=== PATIENT | female | born 1945 | race Hispanic/Latino ===

== ENCOUNTER 2017-04-27 09:00 | Emergency (ER) | payer MEDICARE ==
[~2017-04-27 09:00] MED LIST: AEC81 PO; ATOR40TA71 PO; BUSP5TAB3 PO; CHOL200026 PO; DESI10TA3 PO; LOSA100T29 PO; METF500T6 PO; METO50TA18 PO
[2017-04-27] MEDS ORDERED: ONDANSETRON HCL 4 MG/2 ML VIAL ONE (09:17)
[2017-04-27 09:43] LABS: BASOPHILS % (AUTO) 0.7 % (0.0-5.0); EOSINOPHILS % (AUTO) 1.6 % (0.0-8.0); LYMPHOCYTES % (AUTO) 40.8 % (21.0-51.0); MEAN CORPUSCULAR HEMOGLOBIN 30.8 pg (27.0-33.0); MEAN CORPUSCULAR HGB CONC 34.3 g/dL (32.0-36.0); MEAN CORPUSCULAR VOLUME 89.8 fL (79-99); MONOCYTES % (AUTO) 6.2 % (3.0-13.0); NEUTROPHILS % (AUTO) 50.7 % (40.0-77.0); PLATELET COUNT (AUTO) 265 K/uL (130-400); RED BLOOD CELL COUNT(AUTO) 4.23 MIL/uL (4.00-5.50); RED CELL DISTRIBUTION WIDTH 13.3 % (11.0-15.5); WHITE BLOOD COUNT (AUTO) 9.2 K/uL (4.8-10.8)
[2017-04-27 09:57] LABS: CARBON DIOXIDE 26 mmol/L (21-32); CHLORIDE 103 mmol/L (101-111); CREATININE 0.7 mg/dL (0.5-1.5); GLOMERULAR FILTR. RATE CALC 87 mL/min (>60); GLUCOSE,RANDOM 186 mg/dL (70-105); POTASSIUM 3.5 mmol/L (3.5-5.1); SODIUM SERUM 139 mmol/L (136-145); UREA NITROGEN, BLOOD 14 mg/dL (7-18)
[2017-04-27 10:11] LABS: ALANINE AMINOTRANSFERASE 24 U/L (12-78); ALBUMIN 4.1 g/dL (3.5-5.0); AMYLASE 56 U/L (25-115); ASPARTATE AMINOTRANSFERASE 19 U/L (10-37); BILIRUBIN,TOTAL 0.5 mg/dL (0.2-1.0); CREATINE KINASE MB < 0.5 ng/mL (0.5-3.6); CREATINE KINASE, TOTAL 74 U/L (21-232); LIPASE 311 U/L (114-286); TOTAL PROTEIN, SERUM 8.5 g/dL (6.0-8.3)
[2017-04-27] MEDS ORDERED: SODIUM CHLORIDE 0.9% 1000ML 1,000 ML IV ONE (10:32)
[2017-04-27 10:53] LABS: APPEARANCE,URINE Clear (CLEAR); BILIRUBIN,URINE Negative (NEGATIVE); COLOR,URINE Yellow (YELLOW); GLUCOSE, URINE (UA) Negative (NEGATIVE); KETONES,URINE Negative (NEGATIVE); LEUKOCYTE ESTERASE ,URINE Trace (NEGATIVE); NITRATE,URINE Positive (NEGATIVE); OCCULT BLOOD,URINE Negative (NEGATIVE); PROTEIN,URINE POS 1+ (NEGATIVE)
[2017-04-27 11:15] LABS: RBC,URINE 0-1 /HPF (0-1)
[2017-04-27 11:16] LABS: BACTERIA,URINE Many /HPF (None Seen); SQUAMOUS EPITHELIAL CELL,UR Rare /LPF (0-2)
== END 2017-04-27 12:35 | disposition home or self-care (01) ==
LOC: EDH 09:00
DX: K85.90 Acute pancreatitis without necrosis or infection, unspecified (principal); K31.84 Gastroparesis; E11.9 Type 2 diabetes mellitus without complications; I10 Essential (primary) hypertension; E07.9 Disorder of thyroid, unspecified; Z90.49 Acquired absence of other specified parts of digestive tract; Z90.710 Acquired absence of both cervix and uterus
CPT/HCPCS: 36415; 71045; 74176; 80053; 81001; 82150; 82550; 82553; 83690; 84484; 85025; 87804 ×2; 93005; 96361; 96374; 99285; J2405; J7030

== ENCOUNTER → 2017-08-29 | Outpatient (CLI) | payer MEDICARE | END | disposition home or self-care (01) | LOC: SHCH 09:56 | PROVIDERS: ATTEND Internal Medicine Cardiovascular Disease | DX: I10 Essential (primary) hypertension (principal) | CPT/HCPCS: 93306 ==

== ENCOUNTER → 2018-08-07 | Outpatient (CLI) | payer MEDICARE ==
[~2018-08-07] MED LIST changes: +ALBUTEROL SULFATE 0.083% 2.5 MG/3 ML INH IH ONE; -LOSA100T29 PO; +LOSA100T58 PO; +METF-444 PO; -METF500T6 PO
== END | disposition home or self-care (01) ==
LOC: RESP 08:58
PROVIDERS: ATTEND Internal Medicine Cardiovascular Disease
DX: J44.9 Chronic obstructive pulmonary disease, unspecified (principal)
CPT/HCPCS: 94060; 94727; 94729

== ENCOUNTER 2018-10-18 08:20 | Observation (INO) | payer MEDICARE ==
[~2018-10-18] VITALS: Ht 157.5 cm; Wt 72.5 kg
[~2018-10-18 08:20] MED LIST changes: -ALBUTEROL SULFATE 0.083% 2.5 MG/3 ML INH IH ONE
[2018-10-18] MEDS ORDERED: ASPIRIN 325 MG TABLET ONE (08:27)
[2018-10-18 08:34] LABS: BASOPHILS % (AUTO) 0.9 % (0.0-5.0); EOSINOPHILS % (AUTO) 1.9 % (0.0-8.0); HEMATOCRIT 37.7 % (36-48); LYMPHOCYTES % (AUTO) 42.9 % (21.0-51.0); MEAN CORPUSCULAR HEMOGLOBIN 30.9 pg (27.0-33.0); MEAN CORPUSCULAR HGB CONC 34.2 g/dL (32.0-36.0); MEAN CORPUSCULAR VOLUME 90.2 fL (79-99); MONOCYTES % (AUTO) 5.8 % (3.0-13.0); NEUTROPHILS % (AUTO) 48.5 % (40.0-77.0); PLATELET COUNT (AUTO) 247 K/uL (130-400); RED BLOOD CELL COUNT(AUTO) 4.18 MIL/uL (4.00-5.50); RED CELL DISTRIBUTION WIDTH 12.4 % (11.0-15.5)
[2018-10-18 08:39] LABS: CREATININE 0.9 mg/dL (0.5-1.5); POTASSIUM 3.7 mmol/L (3.5-5.1)
[2018-10-18 08:40] LABS: INR 0.95 (0.85-1.15); PARTIAL THROMBOPLASTIN TIME 25.6 SEC (26.3-35.5)
[2018-10-18 08:43] LABS: ALBUMIN 4.2 g/dL (3.5-5.0); BILIRUBIN,TOTAL 0.5 mg/dL (0.2-1.0); TOTAL PROTEIN, SERUM 8.5 g/dL (6.0-8.3)
[2018-10-18 08:51] LABS: B-TYPE NATRIURETIC PEPTIDE 116 pg/mL (0-100)
[2018-10-18] MEDS ORDERED: NITROGLYCERIN 1GM/1 INCH PACKET TD ONE (10:52)
[2018-10-18 20:00] VITALS: BP 137/64
[2018-10-18] MEDS: NITROGLYCERIN 1GM/1 INCH PACKET TD SCH (20:07)
[2018-10-18] MEDS ORDERED: AMLO10TA4 PO (20:41)
[2018-10-18] MEDS ORDERED: LIFI1DRO OP (20:41)
[2018-10-18] MEDS ORDERED: OMEP-50 PO (20:41)
[2018-10-18] MEDS ORDERED: GABA-529 PO (20:41)
[2018-10-18] MEDS ORDERED: HYDR-2534 PO (20:41)
[2018-10-18] MEDS ORDERED: NITR0.4T50 SL (20:41)
[2018-10-18] MEDS ORDERED: POTA99TA21 PO (20:46)
[2018-10-18] MEDS ORDERED: CYAN-35 PO (20:46)
[2018-10-18] MEDS ORDERED: OMEG-148 PO (20:46)
[2018-10-18] MEDS ORDERED: MULT-1258 PO (20:46)
[2018-10-18] MEDS ORDERED: ASCO10007 PO (20:46)
[2018-10-18] MEDS ORDERED: VITA400C70 PO (20:46)
[2018-10-19] VITALS: BP 123/66
[2018-10-19] MEDS: NITROGLYCERIN 1GM/1 INCH PACKET TD SCH ×2 (02:47→09:16)
[2018-10-19 04:00] VITALS: BP 129/66
[2018-10-19 07:07] LABS: HEMOGLOBIN A1C 6.5 % (4.0-6.0)
[2018-10-19 07:43] VITALS: BP 140/67
--- NOTE | 2018-10-19 07:48 | NUR ---
reported wbc of 1.1 to [facility]. no orders given.
[2018-10-19 08:03] LABS: ALBUMIN 3.7 g/dL (3.5-5.0); BILIRUBIN,TOTAL 0.4 mg/dL (0.2-1.0); CREATININE 0.8 mg/dL (0.5-1.5); POTASSIUM 3.6 mmol/L (3.5-5.1); TOTAL PROTEIN, SERUM 7.7 g/dL (6.0-8.3)
[2018-10-19] MEDS ORDERED: FAMOTIDINE 20MG TAB 20 MG TAB PO SCH (09:00)
[2018-10-19] MEDS ORDERED: ENOXAPARIN SODIUM 30 MG/0.3 ML SQ SCH (09:00)
[2018-10-19] MEDS ORDERED: ASPIRIN 325 MG TABLET PO SCH (09:00)
[2018-10-19 12:00] VITALS: BP 126/71
[2018-10-19 14:16] LABS: CREATININE 0.8 mg/dL (0.5-1.5)
[2018-10-19 14:40] LABS: HEMATOCRIT 37.4 % (36-48); MEAN CORPUSCULAR HEMOGLOBIN 30.9 pg (27.0-33.0); MEAN CORPUSCULAR HGB CONC 33.3 g/dL (32.0-36.0); MEAN CORPUSCULAR VOLUME 92.7 fL (79-99); NUCLEATED RED BLOOD CELLS 0.2 % (0.0-0.19); PLATELET COUNT (AUTO) 209 K/uL (130-400); RED BLOOD CELL COUNT(AUTO) 4.03 MIL/uL (4.00-5.50); RED CELL DISTRIBUTION WIDTH 12.3 % (11.0-15.5); WHITE BLOOD COUNT (AUTO) 8.7 K/uL (4.8-10.8)
== END 2018-10-19 17:26 | disposition home or self-care (01) ==
LOC: EDH 08:20 → EDHIP 18:42 → 3BH 19:59
PROVIDERS: ADMIT Internal Medicine; ATTEND Internal Medicine
DX: M94.0 Chondrocostal junction syndrome [Tietze] (principal); R07.89 Other chest pain; E11.9 Type 2 diabetes mellitus without complications; E78.5 Hyperlipidemia, unspecified; I10 Essential (primary) hypertension; Z90.710 Acquired absence of both cervix and uterus; Z82.3 Family history of stroke
CPT/HCPCS: 36415 ×2; 71045; 80048; 80053 ×2; 80061; 82550; 82948 ×2; 83036; 83690; 83880; 84484; 85025; 85027; 85610; 85730; 93005; 96372; 99284; G0378 ×23; J1650

== ENCOUNTER → 2019-01-08 | Outpatient (CLI) | payer MEDICARE ==
[~2019-01-08] MED LIST changes: +AMLO10TA4 PO; +ASCO10007 PO; +CYAN-35 PO; -DESI10TA3 PO; +GABA-529 PO; +HYDR-2534 PO; +LIFI1DRO OP; +MULT-1258 PO; +NITR0.4T50 SL; +OMEG-148 PO; +OMEP-50 PO; +POTA99TA21 PO; +VITA-164 PO
== END | disposition home or self-care (01) ==
LOC: RAH 14:34
PROVIDERS: ATTEND Physical Medicine & Rehabilitation
DX: M54.16 Radiculopathy, lumbar region (principal); M48.061 Spinal stenosis, lumbar region without neurogenic claudication; M41.84 Other forms of scoliosis, thoracic region; M47.14 Other spondylosis with myelopathy, thoracic region
CPT/HCPCS: 72146; 72148

== ENCOUNTER → 2021-01-04 | Outpatient (CLI) | payer MEDICARE ==
[~2021-01-04] MED LIST changes: +ASCO100031 PO; -ASCO10007 PO; -HYDR-2534 PO; +HYDR50TA PO; -OMEP-50 PO; +OMEP20CA12 PO; -POTA99TA21 PO; +POTA99TA26 PO
== END | disposition home or self-care (01) ==
LOC: RAH 09:41
PROVIDERS: ATTEND Family Medicine
DX: R13.10 Dysphagia, unspecified (principal); K21.9 Gastro-esophageal reflux disease without esophagitis; R09.89 Other specified symptoms and signs involving the circulatory and respiratory systems
CPT/HCPCS: 74230; 92611

== ENCOUNTER → 2021-03-15 | Outpatient (CLI) | payer MEDICARE | END | disposition home or self-care (01) | LOC: SHCH 10:44 | PROVIDERS: ATTEND Internal Medicine Cardiovascular Disease | DX: I70.293 Other atherosclerosis of native arteries of extremities, bilateral legs (principal) | CPT/HCPCS: 93925 ==

== ENCOUNTER → 2021-04-12 | Outpatient (CLI) | payer MEDICARE ==
[~2021-04-12] VITALS: Ht 157.5 cm; Wt 72.6 kg
[2021-04-12] MEDS: REGADENOSON 0.4 MG/5 ML PF SYG IVP SCH (13:50)
== END | disposition home or self-care (01) ==
LOC: SHCH 09:31
PROVIDERS: ATTEND Internal Medicine Cardiovascular Disease
DX: I20.8 Other forms of angina pectoris (principal); I10 Essential (primary) hypertension
CPT/HCPCS: 78452; 93017; 96374; A9500 ×2; J2785

== ENCOUNTER → 2021-08-25 | Outpatient (CLI) | payer MEDICARE | END | disposition home or self-care (01) | LOC: SHCH 10:14 | PROVIDERS: ATTEND Internal Medicine Cardiovascular Disease | DX: G45.9 Transient cerebral ischemic attack, unspecified (principal) | CPT/HCPCS: 93880 ==

== ENCOUNTER 2021-09-22 05:30 | Day surgery (SDC) | payer MEDICARE ==
[2021-09-13 15:26] LABS: BASOPHILS % (AUTO) 0.5 % (0.0-5.0); EOSINOPHILS % (AUTO) 1.8 % (0.0-8.0); LYMPHOCYTES % (AUTO) 44.4 % (21.0-51.0); MEAN CORPUSCULAR HEMOGLOBIN 29.8 pg (27.0-33.0); MEAN CORPUSCULAR HGB CONC 33.4 g/dL (32.0-36.0); MEAN CORPUSCULAR VOLUME 89.2 fL (79-99); MONOCYTES % (AUTO) 5.7 % (3.0-13.0); NEUTROPHILS % (AUTO) 47.5 % (40.0-77.0); PLATELET COUNT (AUTO) 273 K/uL (130-400); RED BLOOD CELL COUNT(AUTO) 4.26 MIL/uL (4.00-5.50); RED CELL DISTRIBUTION WIDTH 11.9 % (11.0-15.5); WHITE BLOOD COUNT (AUTO) 9.5 K/uL (4.8-10.8)
[2021-09-13 15:40] LABS: INR 0.95 (0.85-1.15); PROTHROMBIN TIME 10.4 SEC (9.6-11.6)
[2021-09-13 15:42] LABS: PARTIAL THROMBOPLASTIN TIME 27.1 SEC (26.3-35.5)
[2021-09-13 15:45] LABS: B-TYPE NATRIURETIC PEPTIDE 67 pg/mL (0-100)
[2021-09-13 16:01] LABS: CREATININE 0.8 mg/dL (0.5-1.5); POTASSIUM 3.4 mmol/L (3.5-5.1)
[2021-09-21 08:23] VITALS: BP 182/88
[2021-09-22] VITALS (10 sets, daily range): BP systolic 124–184; BP diastolic 59–77
[~2021-09-22] VITALS: Ht 157.5 cm; Wt 70.9 kg
[~2021-09-22 05:30] MED LIST changes: -BUSP5TAB3 PO; +CILO100T PO; +CYCL30DR OP; -LIFI1DRO OP; -NITR0.4T50 SL; +TYLENOL PM PO; -VITA-164 PO
[2021-09-22] MEDS ORDERED: 0.9%NACL 1000ML 1,000 ML IV ONE (06:08)
[2021-09-22] MEDS ORDERED: POTASSIUM CHLORIDE 20MEQ/100ML 100 ML IV SCH (08:00)
[2021-09-22] MEDS ORDERED: 0.9%NACL 1000ML 1,000 ML IV SCH ×2 (08:00→11:30)
[2021-09-22] MEDS ORDERED: HEPARIN 10,000 UNIT/10ML (1,000 UNIT/ML) VIAL ONE (09:51)
[2021-09-22] MEDS ORDERED: NITROGLYCERIN 50MG VIAL ONE (09:51)
[2021-09-22] MEDS ORDERED: LIDOCAINE HCL 400MG/20ML VIAL ONE (09:52)
[2021-09-22] MEDS ORDERED: IODIXANOL 320 MG/ML 100 ML VIAL ONE (09:52)
[2021-09-22] MEDS ORDERED: FENTANYL CITRATE PF 50 MCG/1 ML 2ML VIAL ONE (09:52)
[2021-09-22] MEDS ORDERED: MIDAZOLAM HCL 1 MG/ML 2ML VIAL ONE (09:52)
[2021-09-22] MEDS ORDERED: GLUCAGON 1MG KIT 1 MG ML IM PRN (11:30)
[2021-09-22] MEDS ORDERED: DEXTROSE 50%-WATER 50 ML DISP.SYRIN IV PRN (11:30)
== END 2021-09-22 15:15 | disposition home or self-care (01) ==
LOC: DAH 05:30
PROVIDERS: ATTEND Internal Medicine
DX: I70.213 Atherosclerosis of native arteries of extremities with intermittent claudication, bilateral legs (principal); I70.92 Chronic total occlusion of artery of the extremities; I35.0 Nonrheumatic aortic (valve) stenosis; E11.51 Type 2 diabetes mellitus with diabetic peripheral angiopathy without gangrene; I11.9 Hypertensive heart disease without heart failure; E78.5 Hyperlipidemia, unspecified; E11.42 Type 2 diabetes mellitus with diabetic polyneuropathy; Z90.710 Acquired absence of both cervix and uterus; Z98.890 Other specified postprocedural states; Z82.49 Family history of ischemic heart disease and other diseases of the circulatory system; Z83.3 Family history of diabetes mellitus; Z79.01 Long term (current) use of anticoagulants
CPT/HCPCS: 80048; 83880; 85025; 85610; 85730; 36415; 71045; 93005; 75625; 36246; 75716; 82948 ×2; C1769 ×2; C1894 ×2; C1887; C1760; J3010; J3490 ×2; J7030; J1644 ×3; J2250; J3480; Q9967; A4215; A4335; A4222; A4221; A4663; A4216; A4606; A4223 ×3; A4520; A4554; 36247; 96360; 96361; 96365; 96366; 99156; 99157

== ENCOUNTER → 2021-12-12 | Outpatient (CLI) | payer MEDICARE ==
[~2021-12-12] MED LIST changes: -HYDR50TA PO
== END | disposition home or self-care (01) ==
LOC: RAH 10:50
PROVIDERS: ATTEND Urology
DX: N28.1 Cyst of kidney, acquired (principal)
CPT/HCPCS: 76770

== ENCOUNTER → 2022-03-22 | Outpatient (CLI) | payer MEDICARE ==
[~2022-03-22] MED LIST changes: -CILO100T PO; +CILO100T3 PO
== END | disposition home or self-care (01) ==
LOC: RAH 10:43
PROVIDERS: ATTEND Physical Medicine & Rehabilitation
DX: M50.323 Other cervical disc degeneration at C6-C7 level (principal); M54.12 Radiculopathy, cervical region; M48.02 Spinal stenosis, cervical region
CPT/HCPCS: 72141

== ENCOUNTER 2022-10-26 05:57 | Day surgery (SDC) | payer MEDICARE ==
[2022-10-25 10:19] LABS: BASOPHILS # (AUTO) 0.05 K/uL (0.00-0.20); BASOPHILS % (AUTO) 0.6 % (0.0-5.0); EOSINOPHILS # (AUTO) 0.22 K/uL (0.00-0.70); EOSINOPHILS % (AUTO) 2.8 % (0.0-8.0); HEMATOCRIT 38.7 % (36-48); IMMATURE GRANULOCYTE ABSOLUTE 0.01 K/uL (0-1); LYMPHOCYTES # (AUTO) 3.3 K/uL (1.0-4.8); LYMPHOCYTES % (AUTO) 41.5 % (21.0-51.0); MEAN CORPUSCULAR HEMOGLOBIN 29.9 pg (27.0-33.0); MEAN CORPUSCULAR HGB CONC 33.3 g/dL (32.0-36.0); MEAN CORPUSCULAR VOLUME 89.6 fL (79-99); MONOCYTES # (AUTO) 0.5 K/uL (0.1-1.0); MONOCYTES % (AUTO) 6.8 % (3.0-13.0); NEUTROPHILS # (AUTO) 3.8 K/uL (1.8-7.7); NEUTROPHILS % (AUTO) 48.2 % (40.0-77.0); PLATELET COUNT (AUTO) 232 K/uL (130-400); RED BLOOD CELL COUNT(AUTO) 4.32 MIL/uL (4.00-5.50); RED CELL DISTRIBUTION WIDTH 11.8 % (11.0-15.5); WHITE BLOOD COUNT (AUTO) 7.8 K/uL (4.8-10.8)
[2022-10-25 10:30] LABS: CREATININE 0.7 mg/dL (0.5-1.5); POTASSIUM 3.8 mmol/L (3.5-5.1)
[2022-10-25 12:25] VITALS: BP_SYST 161; BP_SYST 172; BP_DIAS 68; BP_DIAS 71; PULSE 71; RESP 20
[2022-10-26] VITALS (12 sets, daily range): BP systolic 133–154; BP diastolic 61–72; PULSE 66–75; RESP 14–18
[~2022-10-26] VITALS: Ht 154.9 cm; Wt 69.6 kg
[~2022-10-26 05:57] MED LIST changes: -ASCO100031 PO; -CHOL200026 PO; -CILO100T3 PO; +CILO50TA2 PO; -CYAN-35 PO; +HYDR25TA PO; -LOSA100T58 PO; +LOSA100T59 PO; -MULT-1258 PO; -OMEG-148 PO; -OMEP20CA12 PO; -POTA99TA26 PO; -TYLENOL PM PO
[2022-10-26] MEDS ORDERED: 0.9%NACL 1000ML 1,000 ML IV ONE (06:16)
[2022-10-26] MEDS ORDERED: CEFAZOLIN SODIUM 2 GM VIAL ONE (06:16)
[2022-10-26] MEDS ORDERED: LIDOCAINE HCL-MPF 0.5% 50ML VIAL IJ ONE (06:56)
[2022-10-26] MEDS ORDERED: MIDAZOLAM HCL 1 MG/ML 2ML VIAL ONE (06:57)
[2022-10-26] MEDS ORDERED: FENTANYL CITRATE PF 50 MCG/1 ML 2ML VIAL ONE (06:58)
[2022-10-26] MEDS ORDERED: CEFAZOLIN SODIUM 2 GM VIAL IVPB ONE (07:40)
[2022-10-26] MEDS ORDERED: PROPOFOL 10 MG/ML 20ML VIAL IV ONE (07:46)
[2022-10-26] MEDS ORDERED: ONDANSETRON 4MG INJ ONE (07:59)
== END 2022-10-26 09:40 | disposition home or self-care (01) ==
LOC: DAH 05:57
PROVIDERS: ATTEND Neurological Surgery
DX: G56.03 Carpal tunnel syndrome, bilateral upper limbs (principal); Z20.822 Contact with and (suspected) exposure to COVID-19; I10 Essential (primary) hypertension; E66.01 Morbid (severe) obesity due to excess calories; Z79.01 Long term (current) use of anticoagulants; Z79.84 Long term (current) use of oral hypoglycemic drugs; Z79.899 Other long term (current) drug therapy
CPT/HCPCS: 36415; 80048; 85025; 64721; 82948 ×2; A4663; J3010; J7030; J2250; J2704; J2405; J3490; J0690 ×2; A4215; A4222; A4216; A4223 ×2; A4221

== ENCOUNTER → 2023-01-05 | Outpatient (CLI) | payer MEDICARE ==
[~2023-01-05] MED LIST changes: +IOHEXOL 350 MG/ML 100ML INFUS..BTL IV ONE
== END | disposition home or self-care (01) ==
LOC: CANPRECLI → RAH 10:48
PROVIDERS: ATTEND Urology
DX: N28.1 Cyst of kidney, acquired (principal); N20.0 Calculus of kidney; Z90.49 Acquired absence of other specified parts of digestive tract
CPT/HCPCS: 74178; Q9967

== ENCOUNTER → 2023-08-09 | Outpatient (CLI) | payer MEDICARE ==
[~2023-08-09] MED LIST changes: -IOHEXOL 350 MG/ML 100ML INFUS..BTL IV ONE
== END | disposition home or self-care (01) ==
LOC: SHCH 10:13
PROVIDERS: ATTEND Internal Medicine Cardiovascular Disease
DX: I70.203 Unspecified atherosclerosis of native arteries of extremities, bilateral legs (principal)
CPT/HCPCS: 93925

== ENCOUNTER → 2023-09-07 | Outpatient (CLI) | payer MEDICARE | END | disposition home or self-care (01) | LOC: RAH 14:30 | PROVIDERS: ATTEND Physician Assistant | DX: M85.852 Other specified disorders of bone density and structure, left thigh (principal); M85.851 Other specified disorders of bone density and structure, right thigh; M99.05 Segmental and somatic dysfunction of pelvic region | CPT/HCPCS: 73521 ==

== ENCOUNTER 2024-03-11 05:53 | Day surgery (SDC) | payer MEDICARE ==
[2024-03-07 11:07] VITALS: BP 160/64; PULSE 77; RESP 16; TEMP 98.1
[2024-03-07 11:36] LABS: BASOPHILS # (AUTO) 0.05 K/uL (0.00-0.20); BASOPHILS % (AUTO) 0.7 % (0.0-5.0); EOSINOPHILS # (AUTO) 0.12 K/uL (0.00-0.70); EOSINOPHILS % (AUTO) 1.6 % (0.0-8.0); HEMATOCRIT 36.6 % (36-48); IMMATURE GRANULOCYTE ABSOLUTE 0.01 K/uL (0-1); LYMPHOCYTES # (AUTO) 3.5 K/uL (1.0-4.8); LYMPHOCYTES % (AUTO) 45.8 % (21.0-51.0); MEAN CORPUSCULAR HEMOGLOBIN 30.6 pg (27.0-33.0); MEAN CORPUSCULAR HGB CONC 33.9 g/dL (32.0-36.0); MEAN CORPUSCULAR VOLUME 90.4 fL (79-99); MONOCYTES # (AUTO) 0.4 K/uL (0.1-1.0); MONOCYTES % (AUTO) 5.7 % (3.0-13.0); NEUTROPHILS # (AUTO) 3.5 K/uL (1.8-7.7); NEUTROPHILS % (AUTO) 46.1 % (40.0-77.0); PLATELET COUNT (AUTO) 230 K/uL (130-400); RED BLOOD CELL COUNT(AUTO) 4.05 MIL/uL (4.00-5.50); RED CELL DISTRIBUTION WIDTH 11.9 % (11.0-15.5); WHITE BLOOD COUNT (AUTO) 7.6 K/uL (4.8-10.8)
[2024-03-07 11:48] LABS: CREATININE 0.7 mg/dL (0.5-1.0); POTASSIUM 3.5 mmol/L (3.5-5.1)
--- NOTE | 2024-03-07 11:48 | EKG ---
[facility] Test Date: 2024-03-07 Test Time: 11:52:44 Pat Name: GAVIN PERRY Department: [facility] Room: Gender: F Leasing Director: [id number] : 1945 Requested By: ADILENE MORIN Order Number: [id number] Reading MD: Adilene Craft Measurements Intervals Only Rate: 76 P: 63 VT: 150 QRS: 5 QRSD: 98 T: 65 QT: 361 QTc: 407 Interpretive Statements Sinus rhythm Low voltage, extremity and precordial leads Compared to ECG 11/19/2023 08:39:44 No significant changes Electronically Signed On 03-07-2024 12:26:42 DRIVER EDUCATION INSTRUCTOR by Adilene Craft Please click the below link to view image of tracing.
[2024-03-07 11:49] LABS: INR 0.97 (0.85-1.15); PROTHROMBIN TIME 10.9 SEC (9.6-11.6)
[2024-03-07 11:51] LABS: PARTIAL THROMBOPLASTIN TIME 27.8 SEC (26.3-35.5)
[2024-03-07 12:24] LABS: B-TYPE NATRIURETIC PEPTIDE 67 pg/mL (0-100)
[2024-03-11] VITALS (10 sets, daily range): BP systolic 124–162; BP diastolic 48–73; PULSE 56–84; RESP 12–16; TEMP 97.2–97.5
[~2024-03-11] VITALS: Ht 154.9 cm; Wt 64.9 kg
[~2024-03-11 05:53] MED LIST changes: +CHOL100040 PO; +DOCU100T9 PO; +LEVO100C4 PO; +MULT-1258 PO; +OMEG100033 PO; +OMEP40CA21 PO
[2024-03-11] MEDS ORDERED: HEParin 10,000 UNIT/10ML (1,000 UNIT/ML) VIAL ONE (07:08)
[2024-03-11] MEDS ORDERED: HEParin-NS 1,000 UNIT/500 ML 1,500 ML IV ONE (07:08)
[2024-03-11] MEDS ORDERED: IODIXANOL 320 MG/ML 100 ML VIAL ONE (07:08)
[2024-03-11] MEDS ORDERED: LIDOCAINE HCL 400MG/20ML VIAL ONE (07:08)
[2024-03-11] MEDS ORDERED: NITROGLYCERIN 50MG VIAL ONE ×2 (07:09→09:29)
[2024-03-11] MEDS: 0.9%NACL 1000ML 1,000 ML IV SCH (07:12)
[2024-03-11] MEDS ORDERED: FENTanyl CITRate PF 50 MCG/1 ML 2ML VIAL ONE ×2 (07:33→10:04)
[2024-03-11] MEDS ORDERED: MIDAZOLAM HCL 1 MG/ML 2ML VIAL ONE ×2 (07:34→09:42)
[2024-03-11] MEDS ORDERED: niCARDIpine 25MG INJ IV ONE (09:31)
[2024-03-11] MEDS ORDERED: cloPIDOgrel 300MG TAB ONE (10:39)
[2024-03-11] MEDS ORDERED: ondanSETRON 4MG INJ ONE (10:56)
[2024-03-11] MEDS ORDERED: 0.9%NACL 1000ML 1,000 ML IV SCH (11:00)
--- NOTE | 2024-03-11 11:03 | PRN ---
Procedure:Peripheral Angiogram Procedure Note Procedure Note: Peripheral Angiogram Date/Time of Service: 03/11/2024 Referring Physician: Dr. Powers Procedures Performed: Lower abdominal aortogram, peripheral angiogram with lower extremity arterial runoff, balloon lithotripsy and drug coated balloon angioplasty of the left tibioperoneal artery, orbital atherectomy, balloon angioplasty, and balloon lithotripsy of the proximal, mid, and distal left anterior tibial artery, balloon angioplasty of the left dorsalis pedis artery. Indications for Procedure: PAD, Patillas category three symptoms, on goal-directed medical therapy Description of Procedure: [After informed consent was obtained the patient was prepped and draped in the usual sterile fashion a 6 Croatian arterial sheath with a hemostatic valve was inserted into the right common femoral artery using a modified Salinger technique on the first past front wall puncture. A 5 Croatian Omni Flush catheter was then advanced over a soft angled Glidewire into the abdominal aorta and a abdominal aortogram with runoff was obtained. The findings are listed below. The Omni flush catheter was then advanced to the left external iliac artery and the left lower extremity arteriogram was obtained. The findings are listed below.] Findings: Lower Abdominal aorta: 90% stenosis in the distal segment of the artery. Right common iliac artery: patent Right external iliac artery: patent Right internal iliac artery: patent Right common femoral artery: patent Right profunda artery: patent Left common iliac artery: patent Left external iliac artery: patent Left internal iliac artery: patent Left common femoral artery: patent Left profunda artery: patent Left superficial femoral artery: patent, with 30% stenosis in the distal segment of the artery Left popliteal artery: patent, with 30% stenosis in the mid segment of the artery Left anterior tibial artery: 100% stenosis (UX ENGINEER = 200mm) in the proximal segment of the artery. The artery reconstitutes distally via collateral blood flow Left tibioperoneal artery: 99% stenosis in the mid segment of the artery Left peroneal artery: patent: patent Left posterior tibial artery: 100% stenosis (UX ENGINEER > 250mm) in the proximal segme nt of the artery. The artery does not reconstitute distally. Left dorsalis pedis artery: 90% stenosis in the proximal segment of the artery Left pedal arch: Incomplete, with slow single-vessel runoff supplying the anterior segments of the pedal arch. Intervention: After reviewing the above-mentioned findings the decision was made to intervene on the left anterior tibial artery, left dorsalis pedis artery and the left tibioperoneal artery. The soft angled Glidewire was reinserted into the Omni flush catheter was advanced to the left popliteal artery. We then exchanged the short six Croatian arterial sheath for a 65 cm six Croatian destination arterial sheath, which was then placed in the mid left superficial femoral artery. We then administered heparin 75 units/kg and clopidogrel 600 mg x 1 dose. We then advanced a 0.014 whisper guidewire and 0.014 quick cross guide catheter into the proximal left anterior tibial artery. We then proceeded with a wire escalation technique, which included a 0.014 Fielder XT and 0.014 miracle 12 guidewires. We were then able to cross the areas stenosis and advanced the miracle 12 guidewire into the mid left dorsalis pedis artery. We then exchanged miracle 12 guidewire for a Viper wire and removed the quick cross guide catheter. We then performed multiple passes of orbital atherectomy (CSI 1.25 micro) at different speed's (34657 > 09269 krpm) in the proximal, mid, and distal left anterior tibial artery. We then performed balloon angioplasty (1.5 x 10mm > 2.0 x 12mm) in the proximal left dorsalis pedis artery. We then performed balloon angioplasty (2.0 x 20mm > 2.5 x 150mm), balloon lithotripsy (shockwave 3.0 x 80mm) in the proximal, mid, and distal left anterior tibial artery. We then advanced a 2nd wire, 0.014 miracle 3 guidewire across the areas stenosis in the left tibioperoneal artery and into the distal left peroneal artery. We then performed balloon angioplasty (2.0 x 20 mm), balloon lithotripsy (shockwave 3.0 x 80 mm) and drug coated balloon angioplasty (Medtronic impact 4.0 x 40 mm) in the left tibioperoneal artery. The balloons were then removed and repeat angiography was performed, which revealed widely patent left anterior tibial artery and left tibioperoneal artery, without dissection, or perforation, and brisk two vessel runoff supplying the anterior posterior segments of the left pedal arch. The Viper wire, miracle guidewire, and six Croatian 65 cm destination arterial sheath were then removed and the arteriotomy site in the right common femoral artery was successfully closed using a six Croatian Angio-Seal device. The patient tolerated the procedure well and without issue. Estimated Blood Loss: [60]mL Complications: [ None] Conclusion: 1. PAD, Patillas category three symptoms, 100% stenosis in the proximal, mid, and distal left anterior tibial artery status post successful treatment with orbital atherectomy, balloon angioplasty, and balloon lithotripsy, 90% stenosis in the proximal left dorsalis pedis artery status post successful treatment with balloon angioplasty, 99% stenosis in the left tibioperoneal artery status post successful treatment with balloon angioplasty, balloon lithotripsy, and drug coated balloon angioplasty, resulting in widely patent arteries, without dissection, perforation, and brisk two vessel runoff supplying the anterior segments of the left pedal arch. 2. Residual PAD, 100% stenosis in the proximal left posterior tibial artery. The artery does not reconstitute distally and thus is not amenable to percutaneous or surgical intervention. 90% stenosis in the distal abdominal aorta Recommendations/Instructions: 1. Continue goal-directed medical therapy. 2. Continue aspirin 81 mg daily and cilostazol 50 mg BID 3. Groin precautions 4. 4 hours of bedrest 5. Start 100ml/hr x 3hrs 6. Okay to DC if the right groin is soft, free of bruising, bleeding, and or hematoma formation. 7. No driving for the next 48 hours 8. No heavy lifting or strenuous exercise for the next two weeks. 9. Please have the patient follow up with Dr. Powers in 1-2 weeks. 10. We will bring the patient back at a later date to address the residual PAD in the lower abdominal aorta. The procedure will be done with ADILENE Herrera MD Mar 11, 2024 11:03
[2024-03-11] MEDS: cloPIDOgrel 300MG TAB PO ONE (13:26)
== END 2024-03-11 14:43 | disposition home or self-care (01) ==
LOC: DAH 05:53
PROVIDERS: ATTEND Internal Medicine Cardiovascular Disease
DX: I73.9 Peripheral vascular disease, unspecified (principal); I25.10 Atherosclerotic heart disease of native coronary artery without angina pectoris; E78.5 Hyperlipidemia, unspecified; R07.9 Chest pain, unspecified; I10 Essential (primary) hypertension; E11.9 Type 2 diabetes mellitus without complications; Z90.710 Acquired absence of both cervix and uterus; Z68.26 Body mass index [BMI] 26.0-26.9, adult; Z90.89 Acquired absence of other organs; Z79.84 Long term (current) use of oral hypoglycemic drugs; Z79.82 Long term (current) use of aspirin; Z83.3 Family history of diabetes mellitus; Z79.899 Other long term (current) drug therapy
CPT/HCPCS: 80048; 83880; 85025; 85610; 85730; 36415; 93005; 75630; 85347 ×2; 82948 ×2; C9774; C1887 ×2; C1725 ×6; C1894 ×2; C1769 ×6; C1760; C1893; C1724; J3010 ×2; J3490 ×4; J7030; J1644 ×2; J2250 ×2; J2405; Q9967; A4215; A4335; A4222; A4221; A4663; A4216; A4606; A4223 ×3; A4554; 75716; 96360; 96361; 99156; 99157; C9772

== ENCOUNTER → 2024-04-03 | Outpatient (CLI) | payer MEDICARE ==
--- NOTE | 2024-04-03 12:11 | HMCIMG ---
ESOPHAGUS REASON: DYSPHAGIA COMPARISON: None TECHNIQUE: Cine esophagram was performed with fluoroscopic guidance. Fluoroscopy time was 0.3 minutes. 5 short cine sequences were acquired. FINDINGS: There is a normal esophageal peristalsis. Esophagus shows some mild tertiary contractions. There is no evidence of mass or ulcer or obstructing lesion. Particular attention shows surgical clips in region of the thyroid bed. There is mild narrowing of the esophagus on the lateral view at the level of the midportion of the thyroid, AP diameter 6 to 7 mm. There are no other areas of even mild narrowing in the esophagus. There is vallecular and piriform sinus pooling at the conclusion of swallowing. There is eventual mild aspiration of barium from the pooled material. IMPRESSION: 1. Surgical changes in the thyroid bed, there is mild narrowing of the cervical esophagus at this level, maximum distention in the lateral view was 6 and 7 mm. 2. Mild tertiary contractions. 3. Vallecular and piriform sinus pooling, there is eventually mild amount of aspiration from the pooled secretions.
== END | disposition home or self-care (01) ==
LOC: RAH 08:50
PROVIDERS: ATTEND Family Medicine
DX: K22.2 Esophageal obstruction (principal); K22.89 Other specified disease of esophagus; K22.4 Dyskinesia of esophagus; J34.89 Other specified disorders of nose and nasal sinuses; R13.10 Dysphagia, unspecified
CPT/HCPCS: 74220

== ENCOUNTER → 2024-05-08 | Outpatient (CLI) | payer MEDICARE ==
[2024-05-08 10:03] LABS: CREATININE 0.7 mg/dL (0.5-1.0); POTASSIUM 3.5 mmol/L (3.5-5.1)
== END | disposition home or self-care (01) ==
LOC: LAB 09:04
PROVIDERS: ATTEND Internal Medicine Cardiovascular Disease
DX: I10 Essential (primary) hypertension (principal)
CPT/HCPCS: 36415; 80048

== ENCOUNTER → 2024-05-14 | Outpatient (CLI) | payer MEDICARE ==
[~2024-05-14] MED LIST changes: +IOHEXOL 350 MG/ML 100ML INFUS..BTL IV ONE; +IOHEXOL-350 50ML VIAL IV ONE
--- NOTE | 2024-05-14 11:51 | HMCIMG ---
Exam Type: CT angiogram abdomen and pelvis and lower extremities run-off with contrast Exam Type: CT ANGIO CHRIS ABD AORTA RUNOFF Clinical Information: PERIPHERAL VASCULAR DISEASE, UNSPECIFIED Comparison: None Technique: Routine helical scanning at 5mm collimation through the abdomen and pelvis after contrast administration. In addition, sagittal and coronary formations of the abdomen pelvis and surface rendering three-dimensional reconstructions of the abdominal aorta and the bilateral lower extremity arterial system were performed. Findings: The vascular examination is abnormal. There is atheromatous plaque without occlusion involving the aorta, iliac arteries, superficial femoral arteries and popliteal arteries. Trifurcation is patent. There is severe disease on both sides, and all of the vessels of the runoff are occluded above the ankle level bilaterally. There is no aortic aneurysm. There is no occlusion. There is no dissection. There is no extravasation to suggest laceration or rupture. No evidence of nephro or ureterolithiasis is found. No hydronephrosis or ureteral dilatation is seen. The left kidney again demonstrates a heavily calcified cyst posterior lower interpolar region, stable since the examination of January 05, 2023, benign. The visualized portion of the stomach is unremarkable. It shows no wall thickening. No gross ulceration is seen. It is not overly distended. There are no surrounding inflammatory changes. No wall lesions are identified to suggest cancer. The visualized portion of the spleen is unremarkable. It is not enlarged. The pancreas shows normal anatomy. It is not fatty replaced. It shows no lesions. The pancreatic duct is not dilated. The gallbladder is surgically absent. The adrenal glands are unremarkable. There is no enlargement. No lesions are noted. The visualized portion of the liver is unremarkable. It shows no focal masses. The appendix is unremarkable. It shows no evidence of inflammation. No appendicolith is seen. The small bowel is unremarkable. There is no evidence of dilatation to suggest obstruction. No evidence of adynamic ileus is seen. There is no small bowel wall thickening to suggest enteritis. The colon is unremarkable. The urinary bladder is unremarkable. There is no wall thickening to suggest tumor or inflammation. There are no intraluminal calculi. There are no diverticula. There is no evidence of chronic bladder outlet obstruction. There is no evidence of urinary bladder distention to suggest urinary retention. The other pelvic structures are unremarkable. The bony and vascular structures are unremarkable for the patient's age. IMPRESSION: 1. Significant peripheral vascular disease as noted above. This study was performed using dose reduction techniques to include automated exposure control and/or adjustment of the mA and/or kV according to patient size.
== END | disposition home or self-care (01) ==
LOC: RAH 08:44
PROVIDERS: ATTEND Internal Medicine Cardiovascular Disease
DX: I73.9 Peripheral vascular disease, unspecified (principal); I10 Essential (primary) hypertension; N28.89 Other specified disorders of kidney and ureter; N28.1 Cyst of kidney, acquired; Z90.49 Acquired absence of other specified parts of digestive tract
CPT/HCPCS: 75635; 71275; Q9967 ×2

== ENCOUNTER → 2024-05-28 | Outpatient (CLI) | payer MEDICARE ==
[~2024-05-28] MED LIST changes: -IOHEXOL 350 MG/ML 100ML INFUS..BTL IV ONE; -IOHEXOL-350 50ML VIAL IV ONE
--- NOTE | 2024-05-28 13:30 | NUR ---
MBSS COMPLETED (OUTPATIENT). No aspiration; deep non-transient penetration during the swallow with straw sip of thin liquids with no cough response. Recommend MINCED & MOIST solids (mechanical soft/ground), thin liquids with no straws, and pills whole with liquids as tolerated. Compensatory strategies: 1. sit upright during oral intake 2. small bites/sips 3. slow oral intake 4. extra dry swallows 5. NO STRAWS 6. single sips HAND II CUTTER reviewed results and recommendations with patient and son Wade Abreu present at time of eval. HAND II CUTTER educated patient/family on risks and consequences of aspiration. Speech therapy not warranted at this time. Mild pharyngeal dysphagia is functional for her age and best managed with compensatory strategies. All questions answered. Addendum: 05/28/[address] CLARI REED Amended: Links added.
--- NOTE | 2024-05-28 15:16 | HMCIMG ---
MODIFIED BARIUM SWALLOW W CINE REASON: DYSPHAGIA COMPARISON: None TECHNIQUE: Modified barium swallow study was performed by referring speech therapist. FINDINGS: Please see procedure report by referring speech therapist. IMPRESSION: Modified barium swallow study.
== END | disposition home or self-care (01) ==
LOC: RAH 13:03
PROVIDERS: ATTEND Otolaryngology
DX: K22.2 Esophageal obstruction (principal); R13.12 Dysphagia, oropharyngeal phase
CPT/HCPCS: 74230; 92611